=== PATIENT | female | born 1985 | race Caucasian/White ===

== ENCOUNTER → 2019-11-04 | Emergency (ER) | payer OTHER ==
[~2019-11-04] VITALS: Ht 157.5 cm; Wt 66.7 kg
[~2019-11-04] MED LIST: PRENATALES
== END | disposition left against medical advice (07) ==
LOC: ER 14:18
DX: O00.212 Left ovarian pregnancy with intrauterine pregnancy (principal); R42 Dizziness and giddiness; R53.81 Other malaise

== ENCOUNTER 2022-11-05 21:53 | Emergency (ER) | payer OTHER ==
[~2022-11-05] VITALS: Ht 160 cm; Wt 68.0 kg
[2022-11-06] MEDS ORDERED: CEPHALEXIN500 MG PO (02:48)
== END 2022-11-06 03:04 ==
LOC: ER 21:53
DX: Z34.90 Encounter for supervision of normal pregnancy, unspecified, unspecified trimester (principal); N30.90 Cystitis, unspecified without hematuria; Z3A.01 Less than 8 weeks gestation of pregnancy; R10.2 Pelvic and perineal pain

== ENCOUNTER 2022-12-09 21:17 | Inpatient (IN) | payer OTHER ==
[~2022-12-09] VITALS: Ht 165.1 cm; Wt 81.6 kg
[~2022-12-09 21:17] MED LIST changes: +CEPHALEXIN500 MG PO
[2022-12-09 23:15] LABS: HEMATOCRIT 35.4 % (36.0-45.00); HEMOGLOBIN 11.2 g/dL (12.0-15.00); MEAN CELL VOLUME 82.7 fL (80.00-100.00); MEAN CORPUSCULAR HEMOGLOBIN 26.1 pg (27.00-32.0); MEAN CORPUSCULAR HGB CONC 31.6 g/dl (32.0-36.0); PLATELET COUNT 327 K/uL (150-450); RED BLOOD COUNT 4.29 M/uL (4.00-6.00); RED CELL DISTRIBUTION WIDTH 14.5 % (11.5-14.5)
[2022-12-10 00:28] LABS: URINE APPEARANCE Turbid; URINE BILIRRUBIN Negative (NEGATIVE); URINE BLOOD Large; URINE COLOR Yellow; URINE GLUCOSE Negative (NEGATIVE); URINE LEUKOCYTE Small; URINE NITRATE Negative; URINE PROTEIN 30 (NEGATIVE); URINE UROBILINOGEN 0.2 E.U./dl
[2022-12-10 00:32] LABS: URINE BACTERIA 258.7 uL (0.0-1933); URINE EPITHELIAL CELLS 14.4 uL (0.0-38.8); URINE WBC 92.5 uL (0.0-23.2)
[2022-12-10 01:37] LABS: CALCIUM 8.1 mg/dL (8.5-10.1); CREATININE SERUM 0.59 mg/dL (0.55-1.02); GFR 115.99; INR < 0.93; PARTIAL THROMBOPLASTIN TIME 29.5 SECONDS (22.0-34.0); POTASSIUM 3.63 mEq/L (3.5-5.1); PROTHROMBIN TIME 9.7 SECONDS (9.0-11.5)
[2022-12-11 17:18] LABS: HEMATOCRIT 34.6 % (36.0-45.00); HEMOGLOBIN 11.1 g/dL (12.0-15.00); MEAN CELL VOLUME 82.2 fL (80.00-100.00); MEAN CORPUSCULAR HEMOGLOBIN 26.4 pg (27.00-32.0); MEAN CORPUSCULAR HGB CONC 32.2 g/dl (32.0-36.0); PLATELET COUNT 350 K/uL (150-450); RED BLOOD COUNT 4.21 M/uL (4.00-6.00); RED CELL DISTRIBUTION WIDTH 14.2 % (11.5-14.5)
== END 2022-12-12 22:18 | disposition home or self-care (01) | DRG 779 ==
LOC: ER 21:17 → SEC-K 12-10 09:39 → OB/GYN 12-10 09:39
PROVIDERS: General Practice; ADMIT Obstetrics & Gynecology Obstetrics; ATTEND Obstetrics & Gynecology Obstetrics
PROC: BU4CZZZ Ultrasonography of Uterus and Ovaries (ICD-10-PCS; 2022-12-09)
PROC: BU4CZZZ Ultrasonography of Uterus and Ovaries (ICD-10-PCS; 2022-12-11)
PROC: 10D17Z9 Manual Extraction of Products of Conception, Retained, Via Natural or Artificial Opening (ICD-10-PCS; principal; 2022-12-12 16:45)
DX: O02.1 Missed abortion (principal); Z20.822 Contact with and (suspected) exposure to COVID-19

== ENCOUNTER → 2022-12-16 | Day surgery (SDC) | payer OTHER ==
[2022-12-06 09:15] LABS: HEMATOCRIT 35.1 % (36.0-45.00); HEMOGLOBIN 11.6 g/dL (12.0-15.00); MEAN CORPUSCULAR HEMOGLOBIN 27.1 pg (27.00-32.0); PLATELET COUNT 336 K/uL (150-450); RED BLOOD COUNT 4.28 M/uL (4.00-6.00); RED CELL DISTRIBUTION WIDTH 14.7 % (11.5-14.5)
[2022-12-06 09:24] LABS: URINE APPEARANCE Cloudy; URINE BILIRRUBIN Negative (NEGATIVE); URINE BLOOD Negative; URINE COLOR Yellow; URINE GLUCOSE Negative (NEGATIVE); URINE LEUKOCYTE Negative; URINE NITRATE Negative; URINE PROTEIN Negative (NEGATIVE); URINE UROBILINOGEN 0.2 E.U./dl
[2022-12-06 09:27] LABS: URINE BACTERIA 3388.7 uL (0.0-1933); URINE EPITHELIAL CELLS 26.3 uL (0.0-38.8); URINE RBC 6.9 uL (0.0-20.8); URINE WBC 23.6 uL (0.0-23.2)
[2022-12-06 09:58] LABS: INR < 0.93; PARTIAL THROMBOPLASTIN TIME 28.2 SECONDS (22.0-34.0); PROTHROMBIN TIME 9.7 SECONDS (9.0-11.5)
[2022-12-06 10:39] LABS: CALCIUM 9.3 mg/dL (8.5-10.1); CREATININE SERUM 0.59 mg/dL (0.55-1.02); GFR 115.99; POTASSIUM 3.64 mEq/L (3.5-5.1)
[2022-12-06 10:43] LABS: URINE CRYSTALS MANY /HPF; URINE YEAST NEGATIVE /hpf
[~2022-12-16] VITALS: Ht 165.1 cm; Wt 81.6 kg
== END | disposition home or self-care (01) ==
LOC: ER 12-06 07:57 → SEC-K 12-06 14:12 → O/R 12-06 14:12 → ER 12-06 14:12 → EDSTATUS 12-06 17:00 → SEC-K 12-06 17:08 → O/R 12-06 17:08 → CIR.AMB 14:12
PROVIDERS: ATTEND Emergency Medicine
DX: O02.1 Missed abortion (principal); O72.2 Delayed and secondary postpartum hemorrhage; Z20.822 Contact with and (suspected) exposure to COVID-19